=== PATIENT | female | born 1985 | race Caucasian/White ===

== ENCOUNTER 2017-04-30 04:35 | Emergency (ER) | payer MEDICAID, OTHER ==
[~2017-04-30] VITALS: Ht 157.5 cm; Wt 75.9 kg
[2017-04-30 04:43] VITALS: BP 120/90
--- NOTE | 2017-04-30 04:55 | NUR ---
AMBULATED TO ER BED 4
--- NOTE | 2017-04-30 05:00 | NUR ---
Patient being evaluated by DR. GREEN at bedside.
[2017-04-30] MEDS ORDERED: METOCLOPRAMIDE 10 MG/2 ML INJ VIAL IM ONE (05:05)
[2017-04-30] MEDS ORDERED: KETOROLAC 60 MG/2 ML VIAL IM ONE (05:05)
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
[2017-04-30] MEDS ORDERED: LIDOCAINE 1% 500 MG/50 ML VIAL INJ ONE (06:10)
--- NOTE | 2017-04-30 06:10 | NUR ---
DR. GREEN INJECTS LIDOCAINE OCCIPITAL NERVE BLOCK AT BEDSIDE, PT. TOLERATES WELL.
[2017-04-30] MEDS ORDERED: IMI50 PO (06:20)
[2017-04-30] MEDS ORDERED: TOP25 PO (06:20)
[2017-04-30 06:28] VITALS: BP 106/62
--- NOTE | 2017-04-30 06:28 | NUR ---
Patient discharged with v/s stable. Written and verbal after care instructions given and explained. Patient alert, oriented and verbalized understanding of instructions. Ambulatory with steady gait. All questions addressed prior to discharge. ID band removed. Patient advised to follow up with PMD. Rx of REGLAN 10 MG, NAPROSYN 375 MG given. Patient educated on indication of medication including possible reaction and side effects. Opportunity to ask questions provided and answered.
== END 2017-04-30 06:28 | disposition home or self-care (01) ==
LOC: MED 04:35
DX: G43.909 Migraine, unspecified, not intractable, without status migrainosus (principal); G44.209 Tension-type headache, unspecified, not intractable
CPT/HCPCS: 96372; 99284; J1885; J2001; J2765; 81002; 81025